=== PATIENT | male | born 1945 | race Caucasian/White ===

== ENCOUNTER 2024-06-15 11:19 | Inpatient (IN) | payer OTHER ==
[~2024-06-15] VITALS: Ht 188 cm; Wt 80.3 kg
[2024-06-15] MEDS: IV NS 0.9% 500 ML BAG IV ONE (11:30)
[2024-06-15 12:05] LABS: BASOPHILS # (AUTO) 0.1 K/uL (0.0-0.2); BASOPHILS % (AUTO) 0.4 % (0.0-2.0); EOSINOPHILS % (AUTO) 0.1 % (0.0-6.0); HEMATOCRIT 51 % (39-51); HEMOGLOBIN 17.3 g/dL (13.5-17.5); LYMPHOCYTES # (AUTO) 1.7 K/uL (0.8-4.8); LYMPHOCYTES % (AUTO) 11.5 % (20.0-44.0); MEAN CORPUSCULAR HEMOGLOBIN 32 PG (26.0-33.0); MEAN CORPUSCULAR HGB CONC 34 g/dl (31.0-36.0); MEAN CORPUSCULAR VOLUME 94 fL (80-96); MONOCYTES # (AUTO) 1.2 K/uL (0.1-1.30); NEUTROPHILS # (AUTO) 12.1 K/uL (1.8-8.9); PLATELET COUNT (AUTO) 519 K/uL (150-450); RED BLOOD CELL COUNT(AUTO) 5.42 MIL/uL (4.5-6.0); WHITE BLOOD COUNT (AUTO) 15.2 K/uL (4.3-11.0)
[2024-06-15 12:11] LABS: ALANINE AMINOTRANSFERASE 37 U/L (12-78); ALKALINE PHOSPHATASE 128 U/L (46-116); ASPARTATE AMINOTRANSFERASE 6 U/L (15-37); BILIRUBIN,TOTAL 1.2 mg/dL (0.2-1.0); CALCIUM, SERUM 9.2 mg/dL (8.5-10.1); CARBON DIOXIDE 36 mmol/L (21-32); CHLORIDE 87 mmol/L (98-107); CREATININE 2.1 mg/dL (0.6-1.3); GLUCOSE 159 mg/dL (74-106); SODIUM SERUM 131 mmol/L (136-145); TOTAL PROTEIN, SERUM 8.5 g/dL (6.4-8.2)
[2024-06-15 12:18] LABS: THYROID STIMULATING HORMONE 2.87 uIU/mL (0.358-3.74)
[2024-06-15 12:23] LABS: LACTIC ACID 4.4 mmol/L (0.4-2.0); POTASSIUM 2.6 mmol/L (3.5-5.1); UREA NITROGEN, BLOOD 93 mg/dL (7-18)
[2024-06-15 12:25] LABS: INR 1.14 (0.91-1.10); PARTIAL THROMBOPLASTIN TIME 28.8 SEC (24.3-34.3)
[2024-06-15] MEDS: IV NS 0.9% 1,000 ML BAG IV ONE (12:30)
[2024-06-15] MEDS: CEFTRIAXONE 1GM BAG (ER ONLY) 50 ML IV ONE (12:30)
[2024-06-15 12:39] LABS: ALBUMIN 2.6 g/dL (3.4-5.0); BILIRUBIN,DIRECT 0.5 mg/dL (0.0-0.2)
[2024-06-15] MEDS: POTASSIUM CHLORIDE 20 MEQ TAB.PRT.SR PO ONE (13:01)
[2024-06-15] MEDS ORDERED: MAGNESIUM HYDROXIDE 30 ML UDC PO PRN (13:30)
[2024-06-15] MEDS ORDERED: ONDANSETRON HCL/PF 4 MG/2 ML VIAL IVP PRN (13:30)
[2024-06-15] MEDS ORDERED: Z GUARD REMEDY 4 OZ OINT TP PRN (13:30)
[2024-06-15 15:06] LABS: APPEARANCE,URINE CLEAR (CLEAR); BILIRUBIN,URINE NEGATIVE (NEGATIVE); BLOOD, URINE NEGATIVE Ery/uL (NEGATIVE); COLOR,URINE YELLOW (YELLOW); KETONES,URINE NEGATIVE (NEGATIVE); LEUKOCYTE ESTERASE ,URINE NEGATIVE (NEGATIVE); NITRITE, URINE NEGATIVE (NEGATIVE); PH,URINE 5.5 (5.0-8.0); PROTEIN,URINE NEGATIVE (NEGATIVE); UGLUCOSE NEGATIVE (NEGATIVE); UROBILINOGEN,URINE 0.2 EU/dL (0.2)
[2024-06-15] MEDS: IV NS 0.9% 1,000 ML IV PRN (19:50)
[2024-06-15 20:00] VITALS: BP 107/58; TEMP 97.9; O2SAT 96
[2024-06-16] VITALS: BP 115/58; TEMP 97.7; O2SAT 95
[2024-06-16 04:00] VITALS: BP 109/65; TEMP 98.2; O2SAT 95
[2024-06-16 06:41] LABS: BASOPHILS % (AUTO) 0.4 % (0.0-2.0); EOSINOPHILS # (AUTO) 0.1 K/uL (0.0-0.7); EOSINOPHILS % (AUTO) 0.7 % (0.0-6.0); HEMATOCRIT 41 % (39-51); HEMOGLOBIN 14.3 g/dL (13.5-17.5); LYMPHOCYTES # (AUTO) 2.1 K/uL (0.8-4.8); LYMPHOCYTES % (AUTO) 18.4 % (20.0-44.0); MEAN CORPUSCULAR HEMOGLOBIN 32 PG (26.0-33.0); MEAN CORPUSCULAR HGB CONC 35 g/dl (31.0-36.0); MEAN CORPUSCULAR VOLUME 92 fL (80-96); MONOCYTES # (AUTO) 1.1 K/uL (0.1-1.30); MONOCYTES % (AUTO) 9.8 % (2.0-12.0); NEUTROPHILS % (AUTO) 70.7 % (43.0-81.0); PLATELET COUNT (AUTO) 403 K/uL (150-450); RED BLOOD CELL COUNT(AUTO) 4.42 MIL/uL (4.5-6.0); RED CELL DISTRIBUTION WIDTH 13.1 % (11.5-15.0); WHITE BLOOD COUNT (AUTO) 11.3 K/uL (4.3-11.0)
[2024-06-16 07:04] LABS: CALCIUM, SERUM 8.6 mg/dL (8.5-10.1); CREATININE 1.2 mg/dL (0.6-1.3); MAGNESIUM 2.8 mg/dL (1.8-2.4); PHOSPHORUS 2.2 mg/dL (2.5-4.9); POTASSIUM 2.9 mmol/L (3.5-5.1)
[2024-06-16 08:00] VITALS: BP 114/70; TEMP 97.7; O2SAT 95
[2024-06-16] MEDS: K PHOS NEUTRAL 250 MG TABLET PO ONE (10:29)
[2024-06-16] MEDS: POTASSIUM CHLORIDE 20 MEQ TAB.PRT.SR PO ONE (10:29)
[2024-06-16] MEDS: HYDROCODONE/APAP 5/325MG TABLET PO PRN (10:41)
[2024-06-16] MEDS: CEFTRIAXONE 1 G in IV D5W 50 ML IV SCH (12:18)
[2024-06-16 15:18] LABS: CALCIUM, SERUM 8.3 mg/dL (8.5-10.1); CREATININE 1.1 mg/dL (0.6-1.3); POTASSIUM 3.5 mmol/L (3.5-5.1)
[2024-06-16 16:00] VITALS: BP 119/74; TEMP 97.9; O2SAT 94
[2024-06-16] MEDS: MAG HYDROX/AL HYDROX/SIMETH 30 ML UDC PO PRN (19:04)
[2024-06-16 20:00] VITALS: BP_SYST 112; BP_SYST 116; BP_DIAS 112; BP_DIAS 64; TEMP 97.7; TEMP 98.1; O2SAT 96; O2SAT 97
[2024-06-17] VITALS: BP 111/77; TEMP 97.5; O2SAT 95
[2024-06-17 04:00] VITALS: BP 112/64; TEMP 97.7; O2SAT 96
[2024-06-17 07:10] LABS: BASOPHILS % (AUTO) 0.3 % (0.0-2.0); EOSINOPHILS # (AUTO) 0.1 K/uL (0.0-0.7); EOSINOPHILS % (AUTO) 1.3 % (0.0-6.0); HEMATOCRIT 37 % (39-51); LYMPHOCYTES # (AUTO) 1.8 K/uL (0.8-4.8); LYMPHOCYTES % (AUTO) 18.2 % (20.0-44.0); MEAN CORPUSCULAR HEMOGLOBIN 32 PG (26.0-33.0); MEAN CORPUSCULAR HGB CONC 35 g/dl (31.0-36.0); MEAN CORPUSCULAR VOLUME 93 fL (80-96); MONOCYTES # (AUTO) 1.1 K/uL (0.1-1.30); MONOCYTES % (AUTO) 11.3 % (2.0-12.0); NEUTROPHILS # (AUTO) 6.9 K/uL (1.8-8.9); NEUTROPHILS % (AUTO) 68.9 % (43.0-81.0); PLATELET COUNT (AUTO) 339 K/uL (150-450); RED BLOOD CELL COUNT(AUTO) 4.01 MIL/uL (4.5-6.0); RED CELL DISTRIBUTION WIDTH 13.1 % (11.5-15.0); WHITE BLOOD COUNT (AUTO) 10.1 K/uL (4.3-11.0)
[2024-06-17 07:32] LABS: CALCIUM, SERUM 8.6 mg/dL (8.5-10.1); CREATININE 0.9 mg/dL (0.6-1.3); POTASSIUM 2.9 mmol/L (3.5-5.1)
[2024-06-17 08:00] VITALS: BP 129/68; TEMP 98.1; O2SAT 98
[2024-06-17] MEDS: POTASSIUM CHLORIDE 20 MEQ TAB.PRT.SR PO SCH (10:17)
[2024-06-17 16:00] VITALS: BP 127/75; TEMP 98.2; O2SAT 94
[2024-06-17] MEDS: ENSURE ENLIVE CHOC 237 ML CAN PO SCH (17:35)
[2024-06-17] MEDS: LACTULOSE 10 G/15 ML UDC (PYXIS) PO ONE (17:45)
[2024-06-17 20:00] VITALS: BP 118/68; TEMP 98.1; O2SAT 93; O2SAT 95
[2024-06-18 04:00] VITALS: BP 112/70; TEMP 97.9; O2SAT 96
[2024-06-18 07:30] VITALS: BP 127/70; TEMP 98.1; O2SAT 96
[2024-06-18 08:21] LABS: BASOPHILS # (AUTO) 0.1 K/uL (0.0-0.2); BASOPHILS % (AUTO) 0.7 % (0.0-2.0); EOSINOPHILS # (AUTO) 0.1 K/uL (0.0-0.7); EOSINOPHILS % (AUTO) 1.4 % (0.0-6.0); HEMATOCRIT 37 % (39-51); LYMPHOCYTES # (AUTO) 1.8 K/uL (0.8-4.8); LYMPHOCYTES % (AUTO) 17.4 % (20.0-44.0); MEAN CORPUSCULAR HEMOGLOBIN 32 PG (26.0-33.0); MEAN CORPUSCULAR HGB CONC 35 g/dl (31.0-36.0); MEAN CORPUSCULAR VOLUME 93 fL (80-96); MONOCYTES % (AUTO) 9.9 % (2.0-12.0); NEUTROPHILS # (AUTO) 7.2 K/uL (1.8-8.9); NEUTROPHILS % (AUTO) 70.6 % (43.0-81.0); PLATELET COUNT (AUTO) 376 K/uL (150-450); RED BLOOD CELL COUNT(AUTO) 4.04 MIL/uL (4.5-6.0); RED CELL DISTRIBUTION WIDTH 13.1 % (11.5-15.0); WHITE BLOOD COUNT (AUTO) 10.2 K/uL (4.3-11.0)
[2024-06-18 09:12] LABS: CALCIUM, SERUM 8.5 mg/dL (8.5-10.1); CREATININE 0.9 mg/dL (0.6-1.3); POTASSIUM 3.3 mmol/L (3.5-5.1)
[2024-06-18 16:00] VITALS: BP 117/68; TEMP 98.2; O2SAT 96
[2024-06-18] MEDS: POTASSIUM CHLORIDE 20 MEQ TAB.PRT.SR PO SCH (17:31)
[2024-06-18 20:00] VITALS: BP 110/58; TEMP 98.8; O2SAT 97
[2024-06-19 07:30] VITALS: BP 123/68; TEMP 97.7; O2SAT 98
[2024-06-19 08:52] LABS: CALCIUM, SERUM 8.4 mg/dL (8.5-10.1); CREATININE 0.9 mg/dL (0.6-1.3); POTASSIUM 3.7 mmol/L (3.5-5.1)
[2024-06-19 09:17] LABS: BASOPHILS # (AUTO) 0.1 K/uL (0.0-0.2); BASOPHILS % (AUTO) 0.6 % (0.0-2.0); EOSINOPHILS # (AUTO) 0.2 K/uL (0.0-0.7); EOSINOPHILS % (AUTO) 1.9 % (0.0-6.0); HEMATOCRIT 40 % (39-51); HEMOGLOBIN 13.6 g/dL (13.5-17.5); LYMPHOCYTES # (AUTO) 2.1 K/uL (0.8-4.8); MEAN CORPUSCULAR HEMOGLOBIN 32 PG (26.0-33.0); MEAN CORPUSCULAR HGB CONC 34 g/dl (31.0-36.0); MEAN CORPUSCULAR VOLUME 93 fL (80-96); MONOCYTES # (AUTO) 1.1 K/uL (0.1-1.30); MONOCYTES % (AUTO) 9.9 % (2.0-12.0); NEUTROPHILS # (AUTO) 7.6 K/uL (1.8-8.9); NEUTROPHILS % (AUTO) 68.6 % (43.0-81.0); PLATELET COUNT (AUTO) 396 K/uL (150-450); RED BLOOD CELL COUNT(AUTO) 4.24 MIL/uL (4.5-6.0); RED CELL DISTRIBUTION WIDTH 13.3 % (11.5-15.0)
[2024-06-19 16:00] VITALS: BP 111/77; TEMP 98.2; O2SAT 97
[2024-06-19 20:00] VITALS: BP 138/79; TEMP 97.9; O2SAT 97
[2024-06-19] MEDS: MIRTAZAPINE 15 MG TABLET PO SCH (21:46)
[2024-06-19 22:44] VITALS: BP 138/79; TEMP 97.9; O2SAT 97
[2024-06-20 07:10] LABS: CALCIUM, SERUM 8.4 mg/dL (8.5-10.1); CREATININE 0.9 mg/dL (0.6-1.3); POTASSIUM 3.4 mmol/L (3.5-5.1)
[2024-06-20] MEDS: POTASSIUM CHLORIDE 20 MEQ TAB.PRT.SR PO ONE (08:22)
[2024-06-20] MEDS ORDERED: MAGN400O6 PO (11:34)
[2024-06-20] MEDS ORDERED: POLY17PO29 PO (11:34)
[2024-06-20] MEDS ORDERED: MIRT-121 PO (11:34)
[2024-06-20] MEDS ORDERED: LACT-54 PO (11:34)
[2024-06-20] MEDS ORDERED: ACET325T53 PO (11:34)
[2024-06-20] MEDS: POLYETHYLENE GLYCOL 3350 17 GM POWD.PACK PO SCH (11:44)
[2024-06-20 20:00] VITALS: BP 109/75; TEMP 98.2; O2SAT 95
[2024-06-21 08:39] VITALS: BP 127/74; TEMP 98.4; O2SAT 96
[2024-06-21 15:48] VITALS: BP_SYST 123; BP_SYST 132; BP_DIAS 44; BP_DIAS 74; TEMP 98.1; TEMP 98.2; O2SAT 95
[2024-06-21 20:00] VITALS: BP 131/71; TEMP 98.2; O2SAT 96
[2024-06-21] MEDS: ACETAMINOPHEN 325 MG TABLET PO PRN (20:31)
== END 2024-06-21 21:45 | DRG 871 ==
LOC: ER 11:21 → TELE1 14:52 → TELE 16:05 → MED 06-17 10:35
PROVIDERS: ADMIT Nurse Practitioner Acute Care; ATTEND Nurse Practitioner Acute Care
DX: A41.9 Sepsis, unspecified organism (principal); G93.41 Metabolic encephalopathy; N17.0 Acute kidney failure with tubular necrosis; I50.32 Chronic diastolic (congestive) heart failure; E87.20 Acidosis, unspecified; F03.90 Unspecified dementia, unspecified severity, without behavioral disturbance, psychotic disturbance, mood disturbance, and anxiety; I11.0 Hypertensive heart disease with heart failure; I25.10 Atherosclerotic heart disease of native coronary artery without angina pectoris; I70.0 Atherosclerosis of aorta; E86.9 Volume depletion, unspecified; E87.6 Hypokalemia; R74.01 Elevation of levels of liver transaminase levels; E86.1 Hypovolemia; K56.41 Fecal impaction; L89.611 Pressure ulcer of right heel, stage 1; K62.89 Other specified diseases of anus and rectum
CPT/HCPCS: 36415; 71045-TC; 71250-TC; 76770-TC; 80048-TC; 80076-TC; 82550-TC; 82962-TC; 83605-TC; 83735-TC; 83880; 84100-TC; 84443-TC; 84484-TC; 85025-TC; 85730-TC; 87040-TC; 97110-TC; 97112-TC; 97530-TC; A4223; G0378; J0696; J7030; J7050; J7060